=== PATIENT | male | born 1950 | race Caucasian/White ===

== ENCOUNTER → 2019-03-14 | Outpatient (REF) | payer MEDICARE ==
[~2019-03-14] MED LIST: CILO100T PO; GOOD81CH3 PO; JANU50TA8 PO; LISI-538 PO; NORV5TAB PO; OMEP-218 PO; SIMV20TA22 PO; VITA100054 PO
[2019-03-14 13:31] LABS: FREE T4 1.06 NG/DL (0.76-1.46); RHEUMATOID FACTOR QUANT < 10.0 IU/ML (<15.0)
[2019-03-14 13:33] LABS: VITAMIN B12 LEVEL 309 PG/ML
[2019-03-14 13:34] LABS: FOLATE 17.9 NG/ML
[2019-03-14 14:03] LABS: HEMOGLOBIN A1c 7.6 %
== END ==
LOC: M LABNEURO 10:53
PROVIDERS: ATTEND Psychiatry & Neurology Neurology
DX: E11.9 Type 2 diabetes mellitus without complications (principal); E07.9 Disorder of thyroid, unspecified

== ENCOUNTER 2019-03-18 16:01 | Inpatient (IN) | payer MEDICARE ==
[~2019-03-18] VITALS: Ht 175.3 cm; Wt 72.9 kg
[2019-03-18] MEDS ORDERED: OMEP-218 PO (16:13)
[2019-03-18] MEDS ORDERED: CILO100T PO (16:13)
[2019-03-18] MEDS ORDERED: VITA100054 PO (16:13)
[2019-03-18] MEDS ORDERED: SIMV20TA22 PO (16:13)
[2019-03-18] MEDS ORDERED: GOOD81CH3 PO (16:13)
[2019-03-18] MEDS ORDERED: NORV5TAB PO (16:13)
[2019-03-18] MEDS ORDERED: JANU50TA8 PO (16:13)
[2019-03-18] MEDS ORDERED: LISI-538 PO (16:13)
[2019-03-18] MEDS: CILOSTAZOL 100 MG TAB (PLETAL) PO SCH (17:30)
[2019-03-18 17:48] LABS: BASO # 0.1 10^3/uL (0.0-0.2); BASO % 0.9 % (0.0-1.0); EOS # 0.3 10^3/uL (0.0-0.5); EOS % 3.3 % (0.0-3.0); HEMATOCRIT 39.9 % (42.0-52.0); HEMOGLOBIN 13.8 g/dl (13.5-17.5); LYMPH # 2.1 10^3/uL (1.5-5.0); LYMPH % 27.3 % (24.0-44.0); MEAN CORPUSCULAR HEMOGLOBIN 31.7 pg (27.0-33.0); MEAN CORPUSCULAR HGB CONC 34.6 g/dl (32.0-36.5); MEAN CORPUSCULAR VOLUME 91.5 fl (80.0-96.0); MONO # 0.7 10^3/uL (0.0-0.8); MONO % 8.9 % (0.0-5.0); NEUTROPHILS # 4.6 10^3/uL (1.5-8.5); NEUTROPHILS % 59.1 % (36.0-66.0); PLATELET COUNT, AUTOMATED 214 10^3/uL (150-450); RED BLOOD COUNT 4.36 10^6/uL (4.30-6.10); WHITE BLOOD COUNT 7.8 10^3/uL (4.0-10.0)
[2019-03-18 18:21] LABS: ALBUMIN 3.2 GM/DL (3.2-5.2); BILIRUBIN,DIRECT 0.2 MG/DL (0.0-0.2); BILIRUBIN,TOTAL 0.3 MG/DL (0.2-1.0); CALCIUM LEVEL 8.9 MG/DL (8.8-10.2); CK-MB VALUE MASS 3.2 NG/ML (<3.6); CREATININE FOR GFR 1.4 MG/DL (0.70-1.30); GLOMERULAR FILTRATION RATE 53.7 (>49); MB/CK RELATIVE INDEX 2.22 (< OR =4); POTASSIUM SERUM 4.1 MEQ/L (3.5-5.1); THYROID STIMULATING HORMONE 2.17 uIU/ML (0.358-3.740); TOTAL PROTEIN 7.2 GM/DL (6.4-8.2); TROPONIN I 0.02 NG/ML (< 0.10)
[2019-03-18] MEDS ORDERED: GLUCAGON FOR INJ 1 MG VIAL (J1610) SC PRN (18:30)
[2019-03-18] MEDS ORDERED: DEXTROSE 50% 50 ML SYRINGE IV PRN (18:30)
[2019-03-18] MEDS ORDERED: GLUCOSE 4 GM CHEW TABLET PO PRN (18:30)
[2019-03-18 19:52] VITALS: BP 155/83
[2019-03-18] MEDS: SITagliptin 50 MG TAB (JANUVIA) PO SCH (20:34)
[2019-03-18] MEDS ORDERED: ASPIRIN 81 MG CHEW TABLET PO SCH (21:00)
[2019-03-18] MEDS: HumaLOG INSULIN (NovoLOG) PER UNIT SC SCH (21:00)
[2019-03-18] MEDS: SIMVASTATIN 20 MG TAB PO SCH (21:20)
--- NOTE | 2019-03-18 21:44 | HPEPDOC ---
General Date of Admission Mar 18, 2019 at 18:24 Date of Service: Mar 18, 2019 Chief Complaint The patient is a 68-year-old male admitted with a reason for visit of Creutzfeldt-Misael Disease. Source: Patient, RN/MD, Other (domestic partner) History of Present Illness 68 year old male with PMH of Dm, Hypertension, HLD, PAD presented tot ED on the instruction of Neurologist for LP. Over the past 3 weeks patient has suffered a neurological event which has led to weakness of his left hand, appearance of abnormal movements, jerky movements, loss of balance with staggering gait, severe sudden decline in neurocognitive function. He was managing his bills, money, medications, completely independently and then over the past 2 weeks he cannot do those things any more. He cannot even sign his name, this week he is unable to drive. He went to seen Dr Kirby last Tuesday for possible stroke and an MRI was ordered. MRi was done on and on Tuesday they were told that his MRI had features suggestive of "Mad cow disease". They were instructed to present to the ED for Lumber puncture for CSF study. I spoke with Dr Kirby and as per him the CSF should be tested for specifically 14-3-3 protein marker in addition to the meningitis- encephalitis apanel an other routine studies. Home Medications Scheduled Amlodipine Besylate (Norvasc) 5 Mg Tablet, 5 MG PO DAILY, (Reported) Aspirin (Aspirin) 81 Mg Tab.chew, 162 MG PO BID, (Reported) Cholecalciferol (Vitamin D3) (Vitamin D3) 1,000 Unit Capsule, 1,000 UNITS PO Q2D, (Reported) Cilostazol (Cilostazol) 100 Mg Tablet, 100 MG PO BID, (Reported) Lisinopril (Lisinopril) 20 Mg Tablet, 20 MG PO DAILY, (Reported) Omeprazole (Omeprazole) 20 Mg Capsule.dr, 20 MG PO Q2D, (Reported) Simvastatin (Simvastatin) 20 Mg Tablet, 20 MG PO QHS, (Reported) Sitagliptin Phos/Metformin HCl (Janumet 50-1,000 mg Tablet) 1 Each Tablet, 1 TAB PO BID, (Reported) Allergies Coded Allergies: No Known Allergies (Unverified , 03/18/19) Past Medical History Medical History Diabetes, hypertension, hyperlipidemia, stroke, PAD Surgical History appendectomy, bilateral cataract surgery Family History Significant Family History: Diabetes (mother and fathr, grand fathers on both side) Social History * Smoker: former Smoker Alcohol: Denies (quit 3 years) Drugs: marijuana (quit 3 years) A-FIB/CHADSVASC A-FIB History Current/History of A-Fib/PAF?: No Review of Systems Constitutional: Denies: Chills, Fever, Night Sweats Eyes: Denies: Pain, Vision change ENT: Denies: Head Aches, Ear Pain, Dysphagia Skin: Denies: Rash, Lesions, Breakdown Pulmonary: Denies: Dyspnea, Cough Cardiovascular: Denies: Chest Pain, Palpitations, Orthopnea, Paroxysmal Noc. Dyspnea, Lt Headedness Gastrointestinal: Denies: Nausea, Vomiting, Abdominal Pain, Diarrhea Genitourinary: Denies: Dysuria, Frequency, Incontinence, Retention Hematologic: Denies: Bruising, Bleeding Excessively Musculoskeletal: Denies: Neck Pain, Back Pain, Joint Pain, Muscle Pain, Spasms Neurological: Reports: Weakness, Incoordination, Change in speech, Confusion Psych: Reports: Memory Issues Physical Examination General Exam: Positive: Alert, Cooperative, No Acute Distress Eye Exam: Positive: PERRLA, Conjunctiva & lids normal, EOMI; Negative: Sclera icteric ENT Exam: Positive: Atraumatic, Mucous membr. moist/pink, Pharynx Normal Neck Exam: Positive: Supple; Negative: JVD, thyromegaly Chest Exam: Positive: Clear to auscultation, Normal air movement Heart Exam: Positive: Rate Normal, Regular Rhythm, Normal S1, Normal S2; Negative: Murmurs, Rubs Telemetry: Positive: No significant arrhythmia Abdomen Exam: Positive: Normal bowel sounds, Soft; Negative: Tenderness, Hepatospenomegaly Extremity Exam: Positive: Normal pulses; Negative: Clubbing, Cyanosis, Edema Skin Exam: Positive: Nl turgor and temperature; Negative: Breakdown, Lesion Neuro Exam: Positive: Normal Tone, Sensation Intact, Other (tremors, myoclonic jerks, incoordination, loss of balance, cerebellar signs, speech loss of cadance and smoothness , comes in sudden spurts then stops.) Psych Exam: Positive: Other (cognitive impairment, could not name objects, could not do clculation or recall, could not copy, could not do 3 step command. ) Vital Signs Vital Signs Date Time Temp Pulse Resp B/P (MAP) Pulse Ox O2 Delivery O2 Flow Rate FiO2 03/18/19 19:46 98.6 94 18 145/72 (96) 97 Room Air Laboratory Data Labs 24H Laboratory Tests 2 03/18/19 17:04: Immature Granulocyte % (Auto) 0.5, Neutrophils (%) (Auto) 59.1, Lymphocytes (%) (Auto) 27.3, Monocytes (%) (Auto) 8.9H, Eosinophils (%) (Auto) 3.3H, Basophils (%) (Auto) 0.9, Neutrophils # (Auto) 4.6, Lymphocytes # (Auto) 2.1, Monocytes # (Auto) 0.7, Eosinophils # (Auto) 0.3, Basophils # (Auto) 0.1, Nucleated Red Blood Cells % (auto) 0.0, Anion Gap 8, Glomerular Filtration Rate 53.7, Osmolality 297, Lactic Acid Level 2.1*H, Calcium Level 8.9, Total Bilirubin 0.3, Direct Bilirubin 0.2, Aspartate Amino Transf (AST/SGOT) 54H, Alanine Aminotransferase (ALT/SGPT) 88H, Alkaline Phosphatase 83, Ammonia 32, Total Creatine Kinase 144, Creatine Kinase MB 3.2, Creatine Kinase MB Relative Index 2.22, Troponin I 0.02, Total Protein 7.2, Albumin 3.2, Albumin/Globulin Ratio 0.80L, Thyroid Stimulating Hormone (TSH) 2.170 CBC/BMP Laboratory Tests 03/18/19 17:04 Assessment/Plan 68 year old male with PMH of Dm, Hypertension, HLD, PAD presented tot ED on the instruction of Neurologist for LP. Over the past 3 weeks patient has suf fered a neurological event which has led to weakness of his left hand, appearance of abnormal movements, jerky movements, loss of balance with staggering gait, severe sudden decline in neurocognitive function. He was managing his bills, money, medications, completely independently and then over the past 2 weeks he cannot do those things any more. He cannot even sign his name, this week he is unable to drive. He went to seen Dr Kirby last Tuesday for possible stroke and an MRI was ordered. MRi was done on and on Tuesday they were told that his MRI had features suggestive of "Mad cow disease". They were instructed to present to the ED for Lumber puncture for CSF study. I spoke with Dr Kirby and as per him the CSF should be tested for specifically 14-3-3 protein marker in addition to the meningitis- encephalitis apanel an other routine studies. Rapidly progressive cognitive impairment with myoclonic jerks and cerebellar dysfunction high possibility of CJD will schedule for spinal tap by IR with specific test for 14-3-3 marker protein in the CSF in addition to other rou alexandrea stuties As per neuro the MRI is very abnormal with bilateral cortical abnormalities in the occipital lobes, frontal lobes and cerebellum sparing the watershed areas. Hypertension continue lisinopril and amlodipine Diabetes continue januvia and lispo AC and HS. Hyperlipidemia continue statin PAD continue cilastozol and ASA Plan / VTE VTE Prophylaxis Ordered?: Yes HUNTER MOLINA MD Mar 18, 2019 21:44
[2019-03-18] MEDS: RAMELTEON 8 MG TAB (ROZEREM) PO SCH (23:54)
[2019-03-19] MEDS ORDERED: ACETAMINOPHEN TAB 650MG DOSE (2X325MG) PO PRN
[2019-03-19 06:00] VITALS: BP 145/80
[2019-03-19 06:26] LABS: HEMATOCRIT 40.3 % (42.0-52.0); HEMOGLOBIN 13.9 g/dl (13.5-17.5); MEAN CORPUSCULAR HGB CONC 34.5 g/dl (32.0-36.5); MEAN CORPUSCULAR VOLUME 92.6 fl (80.0-96.0); PLATELET COUNT, AUTOMATED 217 10^3/uL (150-450); RED BLOOD COUNT 4.35 10^6/uL (4.30-6.10); WHITE BLOOD COUNT 7.2 10^3/uL (4.0-10.0)
[2019-03-19 06:35] LABS: INR 1.06; PROTHROMBIN TIME 13.5 SECONDS (11.8-14.0)
[2019-03-19 07:01] LABS: ALBUMIN 3.2 GM/DL (3.2-5.2); BILIRUBIN,TOTAL 0.5 MG/DL (0.2-1.0); CALCIUM LEVEL 9.5 MG/DL (8.8-10.2); CREATININE FOR GFR 1.29 MG/DL (0.70-1.30); POTASSIUM SERUM 3.7 MEQ/L (3.5-5.1); TOTAL PROTEIN 7.3 GM/DL (6.4-8.2)
[2019-03-19] MEDS: CILOSTAZOL 100 MG TAB (PLETAL) PO SCH ×2 (07:58→17:59)
[2019-03-19] MEDS: lisinopriL 20 MG TAB PO SCH (09:47)
[2019-03-19] MEDS: amLODIPine 5 MG TAB PO SCH (09:47)
[2019-03-19] MEDS: SITagliptin 50 MG TAB (JANUVIA) PO SCH ×2 (09:47→20:16)
[2019-03-19] MEDS: HumaLOG INSULIN (NovoLOG) PER UNIT SC SCH ×4 (09:47→21:00)
--- NOTE | 2019-03-19 12:26 | ECGEPIP ---
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
[2019-03-19 14:00] VITALS: BP 153/97
--- NOTE | 2019-03-19 17:16 | REP ---
Procedure: Fluoro guidance for lumbar puncture. The procedure was performed under the direct supervision of Dr. Mesa. The risks and benefits of the procedure were explained and informed consent was obtained by the health care proxy. The L3-4 interspace was localized using fluoroscopic guidance. The skin was prepped and draped in a sterile fashion. 1% lidocaine was used as a local anesthetic. Using fluoroscopic guidance a 22-gauge spinal needle was inserted and advanced into the thecal sac. Opening pressure measured less than 9 cm of water. 12 ml of spinal fluid was withdrawn and sent to lab. Impression: Opening pressure measured less than 9 cm of water. The patient tolerated the procedure well and there were no immediate complications. Less than 6 seconds of fluoro time was utilized for this procedure. Electronically Signed by YURIDIA Ocampo 03/19/2019 04:38 P Electronically Signed by Richard Mesa MD 03/19/2019 05:07 P
[2019-03-19 17:21] LABS: CSF TUBE# GLU TUBE 1; CSF TUBE# TP TUBE 1; GLUCOSE CSF 84 MG/DL (40-75); TOTAL PROTEIN,CSF 46 MG/DL (15-45)
--- NOTE | 2019-03-19 18:32 | IPNPDOC ---
Date Seen The patient was seen on 03/19/19. Progress Note SUBJECTIVE: Patient seen and examined this morning. Continues to have childlike demeanor therefore does not appropriately answer questions. He denies any complaints today. He will be going down for a spinal tap later this evening. OBJECTIVE PHYSICAL EXAMINATION: VITAL SIGNS: Please see below. GENERAL: Pleasant 68 lying in bed awake alert oriented speaking in complete sentences no acute distress HEENT: Atraumatic, normocephalic, moist because membranes no JVD CARDIOVASCULAR: S1 S2 regular no additional heart sounds appreciated. RESPIRATORY: Clear to auscultation bilaterally. ABDOMINAL: Bowel sounds present abdomen soft and nontender EXTREMITIES: No clubbing, cyanosis, edema NEUROLOGICAL: Tremors, with monoclonal jerks, childlike demeanor when conve rsing. Speaks in spurts with no fluidity with conversation PSYCHOLOGICAL: Appropriate LABORATORY DATA, MICROBIOLOGY: Please see below. ASSESSMENT AND PLAN: This is a 68-year-old male with rapidly progressing cognitive impairment PROBLEMS: 1. Rapidly progressing cognitive impairment with myoclonic jerks and cervical dysfunction. Spinal tap today highly possibility for CJD. Neurology consulted. possible discharge in the AM. 2. Hypertension c/w lisinopril and amlodipine 3. Diabetes c/w Januvia and ISS 4.Hyperlipidemia c/w statin 5. Peripheral artery disease c/w cilastozol and ASA DVT prophylaxis: Yes DISPOSITION: Possible Discharge in AM VS, I&O, 24H, Fishbone Vital Signs/I&O Vital Signs Date Time Temp Pulse Resp B/P (MAP) Pulse Ox O2 Delivery O2 Flow Rate FiO2 03/19/19 14:00 97.9 96 17 153/97 (115) 94 Room Air I&O- Last 24 Hours up to 6 AM 03/19/19 06:00 Intake Total 0 ml Balance 0 ml Laboratory Data 24H LABS Laboratory Tests 2 03/18/19 21:30: Bedside Glucose (Misc Panel) 203H 03/18/19 21:50: Lactic Acid Followup at 4 Hours 1.5 03/19/19 05:10: Nucleated Red Blood Cells % (auto) 0.0, Prothrombin Time 13.5, Prothromb Time International Ratio 1.06, Anion Gap 4L, Glomerular Filtration Rate 59.0, Calcium Level 9.5, Total Bilirubin 0.5#, Aspartate Amino Transf (AST/SGOT) 56H, Alanine Aminotransferase (ALT/SGPT) 86H, Alkaline Phosphatase 69, Total Protein 7.3, Albumin 3.2, Albumin/Globulin Ratio 0.78L 03/19/19 11:16: Bedside Glucose (Misc Panel) 225H 03/19/19 15:30: 03/19/19 15:32: CSF Glucose (Tube 1) TUBE 1, CSF Total Protein (Tube 1) TUBE 1, CSF Glucose 84H, CSF Total Protein 46H 03/19/19 16:54: Bedside Glucose (Misc Panel) 134H 03/19/19 17:31: CBC/BMP Laboratory Tests 03/19/19 05:10 Microbiology Microbiology 03/19/19 Fungal Smear, Received Pending 03/19/19 Fungal Culture, Received Pending 03/19/19 Gram Stain - Preliminary, Resulted 03/19/19 CSF Culture, Resulted Pending 03/19/19 , Resulted Pending PAYTON MILLS DO Mar 19, 2019 18:32
--- NOTE | 2019-03-19 19:41 | IPNPDOC ---
Text Note Date of Service The patient was seen on 03/19/19. NOTE I had informed the nursing staff at radiology that we have a high suspicion for CJD and special precautions should be taken during spinal tap and special test for CJD will have to be sent which was ordered. I also spoke with or lab staff regarding the tests that we need for this patient and the CSF studies that need to be done. I informed them that proper precautions during the handling of the samples should be taken. I ordered the CSF test needed for CJD which i was told was a sent out test which i ordered. unfortunately samples were not collected properly and later i was informed by the operations label clerk that none of his tests blood or csf can be done here due to possibility of contamination and all the tests will have to be sent out. Inspite of our best efforts we are unable to do any further work up at our hospital. I will try to transfer him out to a higher level of care which will be able to do the appropriate tests needed to establish or refute the diagnosis of CJD. VS,Nadeem, I+O VS, Nadeem, I+O Laboratory Tests 03/19/19 05:10 Vital Signs Date Time Temp Pulse Resp B/P (MAP) Pulse Ox O2 Delivery O2 Flow Rate FiO2 03/19/19 14:00 97.9 96 17 153/97 (115) 94 Room Air HUNTER MOLINA MD Mar 19, 2019 19:41
[2019-03-19] MEDS: SIMVASTATIN 20 MG TAB PO SCH (20:16)
[2019-03-19] MEDS: RAMELTEON 8 MG TAB (ROZEREM) PO SCH (20:16)
[2019-03-19 22:00] VITALS: BP 145/87
[2019-03-20 06:00] VITALS: BP 150/85
[2019-03-20] MEDS: HumaLOG INSULIN (NovoLOG) PER UNIT SC SCH ×2 (09:20→11:53)
[2019-03-20 09:24] VITALS: BP 150/82
[2019-03-20] MEDS: amLODIPine 5 MG TAB PO SCH (09:24)
[2019-03-20] MEDS: lisinopriL 20 MG TAB PO SCH (09:24)
[2019-03-20] MEDS: SITagliptin 50 MG TAB (JANUVIA) PO SCH (09:24)
[2019-03-20] MEDS: CILOSTAZOL 100 MG TAB (PLETAL) PO SCH (11:06)
--- NOTE | 2019-03-20 12:09 | DS.PDOC ---
Discharge Summary General Date of Admission Mar 18, 2019 at 18:24 Date of Discharge 03/20/2019 Discharge Summary DISCHARGE DIAGNOSIS: Rapidly progressive cognitive impairment with myoclonic jerks and cerebellar dysfunction possible CJD SECONDARY DIAGNOSIS: 1. Hypertension 2. Diabetes 3. Hyperlipidemia 4 PAD PROCEDURES PERFORMED DURING STAY: Lumber Puncture by [facility] . CONSULTANTS: Dr Kirby [facility] COURSE: The patient was admitted to [facility] for lumber punture. The patient was admitted for rapidly progressive cognitive impairment with myoclonic jerks and cerebellar dysfunction possible CJD. He was stable during admission. He had a lumbar puncture performed by interventional radiology the next day. It was negative for infectious process. Protein 14-3-3 and other protein markers are currently pending for they have been sent out to [facility] to be tested. On the day of discharge, the patient was stable to go home, Home PT referrel was provided, patient is to follow up with Neurology outpatient as [facility]. Family was agreeable to plan stated to them. DISCHARGE MEDICATIONS: Please see below. ALLERGIES: Please see below. SUBJECTIVE: Patient seen and examined this morning. He denied any symptoms such as chest pain, shortness, breath, nausea, vomiting, fevers, chills. He is alert and oriented 3 surprisingly had a childlike demeanor when conversing. OBJECTIVE: PHYSICAL EXAMINATION: VITAL SIGNS: Please see below. GENERAL: Pleasant 68 lying in bed awake alert oriented speaking in complete sentences no acute distress HEENT: Atraumatic, normocephalic, moist because membranes no JVD CARDIOVASCULAR: S1 S2 regular no additional heart sounds appreciated. RESPIRATORY: Clear to auscultation bilaterally. ABDOMINAL: Bowel sounds present abdomen soft and nontender EXTREMITIES: No clubbing, cyanosis, edema NEUROLOGICAL: Tremors, monoclonal jerks, childlike demeanor when conversing. Speaks in spurts no fluidity with conversation PSYCHOLOGICAL: Appropriate LABORATORY DATA, MICROBIOLOGY: Please see below. DISPOSITION: Home DISCHARGE CONDITION: Stable. FOLLOW UP: 1. Pcp in 7-10 days. 2. f.u. with neurology as [facility]. 3. Follow up on lumber puncture results with neurology ACTIVITY: As prior to admission DIET: As prior to admission TIME SPENT ON DISCHARGE: 50 minutes Vital Signs/I&Os Vital Signs Date Time Temp Pulse Resp B/P (MAP) Pulse Ox O2 Delivery O2 Flow Rate FiO2 03/20/19 09:24 84 150/82 03/20/19 06:00 96.8 18 94 Room Air I&O- Last 24 Hours up to 6 AM 03/20/19 05:59 Intake Total 1540 ml Balance 1540 ml Laboratory Data Labs 24H Laboratory Tests 2 03/19/19 15:30: 03/19/19 15:32: CSF Glucose (Tube 1) TUBE 1, CSF Total Protein (Tube 1) TUBE 1, CSF Glucose 84H, CSF Total Protein 46H 03/19/19 16:54: Bedside Glucose (Misc Panel) 134H 03/19/19 17:31: 03/19/19 18:26: 03/19/19 20:57: Bedside Glucose (Misc Panel) 199H 03/20/19 06:18: Bedside Glucose (Misc Panel) 161H 03/20/19 11:45: Bedside Glucose (Misc Panel) 115 FSBS Laboratory Tests Test 03/19/19 16:54 03/19/19 20:57 03/20/19 06:18 03/20/19 11:45 Range/Units Bedside Glucose (Misc Panel) 134 199 161 115 80-115 MG/DL Microbiology Microbiology 03/19/19 Fungal Smear, Received Pending 03/19/19 Fungal Culture, Received Pending 03/19/19 Gram Stain - Final, Resulted 03/19/19 CSF Culture, Resulted Pending 03/19/19 - Final, Resulted Discharge Medications Scheduled Amlodipine Besylate (Norvasc) 5 Mg Tablet, 5 MG PO DAILY, (Reported) Aspirin (Aspirin) 81 Mg Tab.chew, 162 MG PO BID, (Reported) Cholecalciferol (Vitamin D3) (Vitamin D3) 1,000 Unit Capsule, 1,000 UNITS PO Q2D, (Reported) Cilostazol (Cilostazol) 100 Mg Tablet, 100 MG PO BID, (Reported) Lisinopril (Lisinopril) 20 Mg Tablet, 20 MG PO DAILY, (Reported) Omeprazole (Omeprazole) 20 Mg Capsule.dr, 20 MG PO Q2D, (Reported) Simvastatin (Simvastatin) 20 Mg Tablet, 20 MG PO QHS, (Reported) Sitagliptin Phos/Metformin HCl (Janumet 50-1,000 mg Tablet) 1 Each Tablet, 1 TAB PO BID, (Reported) Allergies Coded Allergies: No Known Allergies (Unverified , 03/18/19) GME ATTESTATION GME ATTESTATION My faculty preceptor for this patient encounter was physically present during the encounter and was fully available. All aspects of the patient interview, examination, medical decision making process, and medical care plan development were reviewed and approved by the faculty preceptor. The faculty preceptor is aware and concurs with the plan as stated in the body of this note and will attest to such by his/her cosignature. ATTENDING NOTE 68 yo man with a history of recent CVA who was admitted per recommendation of his neurologist for rapid neurological decline for neurological work up with particular c/f CJD. During his admission he had an LP performed by interventional radiology that was negative for infectious process with CJD labs per the direction of Dr. [facility] by his neurologist. He was evaluated by PT and deemed safe for home discharge with home PT. PAYTON MILLS DO Mar 20, 2019 12:09 FATOUMATA DIAS MD Mar 21, 2019 10:21
[2019-03-21 21:33] LABS: APPEARANCE, CSF CLEAR (CLEAR); COLOR, CSF COLORLESS (COLORLESS); CSF TUBE# CELL CNT TUBE 2
== END 2019-03-20 12:56 | disposition home or self-care (01) | DRG 57 ==
LOC: M ED 16:01 → M ED INP 18:24 → ENRESERVTM 19:05 → ENRESERVDT 19:05 → M MSPAV 19:58
PROVIDERS: ADMIT Internal Medicine Nephrology; ATTEND Internal Medicine
PROC: 009U3ZX Drainage of Spinal Canal, Percutaneous Approach, Diagnostic (ICD-10-PCS; principal; 2019-03-19)
DX: A81.00 Creutzfeldt-Jakob disease, unspecified (principal); E11.51 Type 2 diabetes mellitus with diabetic peripheral angiopathy without gangrene; E78.5 Hyperlipidemia, unspecified; I10 Essential (primary) hypertension; I73.9 Peripheral vascular disease, unspecified; Z79.82 Long term (current) use of aspirin; Z79.84 Long term (current) use of oral hypoglycemic drugs; Z86.73 Personal history of transient ischemic attack (TIA), and cerebral infarction without residual deficits; Z90.49 Acquired absence of other specified parts of digestive tract; Z98.41 Cataract extraction status, right eye; Z98.42 Cataract extraction status, left eye; Z79.899 Other long term (current) drug therapy